=== PATIENT | female | born 1985 | race Caucasian/White ===

== ENCOUNTER → 2023-08-01 04:26 | Emergency (ER) | payer OTHER ==
[~2023-08-01 04:26] MED LIST: LIDOCAINE 1% 20 ML MDV ONE; LIDOCAINE 1% MPF 30 ML VIAL ONE
--- OUTSIDE RECORDS SUMMARY | 2023-08-01 06:26 | XMS REPORT | Continuity of Care Document ---
Author Name Unknown Address [address] [place] [address] 1 [address] [id number] [facility] Address [address] [facility] 1 [address] [place] [address] Care Team Providers Care Resume Specialist Name Role Phone Shawnee Ryan Attending Clinician Caio e Shawnee Ryan Admitting Clinician Unavailgabrielle e Payers Payer Name Policy Type Policy Number Effective Date Expirati on Date Source [employer] CHOICE POS II [id number] 2019 00:00:00 Allergies, Adverse Reactions, Alerts Allergy Name Allergy Type Status Severity Reaction(s) Onset Date Inactive Date Treating Clinician Comments Source No Known Allergie s DA Active U 09-04 00:00: 00 [facility] Procedures Procedure Date / Time Performed Performing Clinicia n Source [id number] 2023-07-25 00:00:00 DEBPR [facility] Encounters Start Date/Time End Date/Time Encounter Type Admission Type Attending Clinicians Care Facility Care Department Encounter ID Source 2023-03-20 13:50:12 Outpatient [facility] [id number] [facility] 2023-03-01 09:38:17 Outpatient [facility] [id number] [facility] 2023-01-30 10:02:05 Outpatient [facility] [id number] [facility] 2023-01-29 13:46:56 Outpatient [facility] [id number] [facility] 2023-07-25 04:57:00 2023-07-27 10:55:00 Inpatient EL Shawnee Ryan [facility] [id number] [facility] 2023-06-12 15:30:00 2023-06-12 16:16:24 Outpatient [facility] [id number] [facility] 2023-06-06 15:30:00 2023-06-06 15:30:00 Outpatient [facility] [id number] [facility] 2023-05-15 15:30:00 2023-05-15 16:30:19 Outpatient [facility] [id number] [facility] 2023-04-18 15:30:00 2023-04-18 16:30:16 Outpatient [facility] [id number] [facility] 2023-03-20 14:15:00 2023-03-20 15:07:43 Outpatient [facility] [id number] [facility] Results Test Description Test Time Test Comments Results Result Co mments Source HGB [id number] 06:45:00* Test Item Value Reference Range Interpretation Comme [facility] HEMOGLOBIN (test code = HGB) 6.4 g/dL 10.1-13.8 LL RESULTS CALLED Vanessa CALHOUN RNREAD BACK & CONFIRMED? YBY [id number] 07/26/23 0645Results verified by repeat analysis HEMATOCRIT (test code = HCT) 19.1 % 32.5-41.8 LL RESULTS CALLED Vanessa CALHOUN RNREAD BACK & CONFIRMED? YBY [id number] 07/26/23 0645 HGB [id number] 17:46:00* Test Item Value Reference Range Interpretation Comme nts HEMOGLOBIN (test code = HGB) 9.5 g/dL 10.1-13.8 L HEMATOCRIT (test code = HCT) 28.2 % 32.5-41.8 L [id number] 07:15:00* Test Item Value Reference Range Interpretation Comme nts GLUCOSE (test code = GLU) 73 mg/dL 65-110 N AB HIV 1 14:12:00* Test Item Value Reference Range Interpretation Comme nts AB HIV 1 2 (test code = HGY38JA) NONREACTIVE NONREACTIVE Done by Siemens Yik Yakaur 4th Gen HIV Ag/Ab Combo Screen AG HEPATITIS B [id number] 14:12:00* Test Item Value Reference Range Interpretation Comme nts AG HEPATITIS B SURFACE (test code = HBSAG) NONREACTIVE NONREACTIVE AB HEPATITIS C [id number] 14:12:00* Test Item Value Reference Range Interpretation Comme nts AB HEPATITIS C (test code = HCVAB) NONREACTIVE NONREACTIVE SIGNAL TO CUTOFF (test code = CUTOFF) 0.15 <0.80 N AB [id number] 14:12:00* Test Item Value Reference Range Interpretation Comme nts AB TREPONEMA (test code = TREPAB) NONREACTIVE NONREACTIVE COMPREHENSIVE METABOLIC [id number] 13:27:00* Test Item Value Reference Range Interpretation Comme nts SODIUM (test code = NA) 140 mEq/L 135-145 N POTASSIUM (test code = K) 4.1 mEq/L 3.5-5.0 N CHLORIDE (test code = CL) 105 mEq/L 100-115 N CARBON DIOXIDE (test code = CO2) 23 mEq/L 22-31 N ANION GAP (test code = GAP) 16.40 10-20 N GLUCOSE (test code = GLU) 87 mg/dL 65-110 N BLOOD UREA NITROGEN (test code = BUN) 16 mg/dL 7-18 N GLOMERULAR FILTRATION RATE (test code = GFR) 122 ml/min >60 N The Glomerular Filtration Rate is a calculated parameterbased on serum Creatinine, patient age and sex. GFR valuesless than 60 mL/min/1.73 square meters are indicative ofChronic Kidney Disease. Values less than 15 mL/min/1.73square meters indicate Kidney failure. The calculation forGFR is based on the CKD-EPI (2020) calculation. This formulais race indifferent and is the recommended formula for GFRby the National Kidney Foundation for Adults.The GFR will not calculate if the sex is unknown or if thepatient's age is <18 years. CREATININE (test code = CREAT) 0.5 mg/dL 0.5-1.0 N TOTAL PROTEIN (test code = PROT) 6.0 gm/dL 6.3-8.2 L ALBUMIN (test code = ALB) 2.4 gm/dL 3.4-4.8 L CALCIUM (test code = CA) 9.0 mg/dL 8.4-10.2 N BILIRUBIN TOTAL (test code = BILT) 0.3 mg/dL 0.2-1.0 N SGOT/AST (test code = AST) 15 units/L 15-37 N SGPT/ALT (test code = ALT) 17 units/L 12-78 N ALKALINE PHOSPHATASE TOTAL (test code = ALKP) 170 units/L 46-116 H CBC W/AUTO [id number] 12:03:00* Test Item Value Reference Range Interpretation Comme nts WHITE BLOOD CELL (test code = WBC) 8.3 K/mm3 6.5-12.3 N RED BLOOD CELL (test code = RBC) 3.94 M/mm3 3.51-4.69 N HEMOGLOBIN (test code = HGB) 11.9 g/dL 10.1-13.8 N HEMATOCRIT (test code = HCT) 35.6 % 32.5-41.8 N MEAN CELL VOLUME (test code = MCV) 90.4 fL 84.6-96.6 N MEAN CELL HGB (test code = MCH) 30.2 pg 27.3-33.9 N MEAN CELL HGB CONCETRATION ( test code = MCHC) 33.4 gm/dL 32.0-34.2 N RED CELL DISTRIBUTION WIDTH (test code = RDW) 12.4 % 12.2-16.3 N PLATELET COUNT (test code = PLT) 193 K/mm3 134-363 N MEAN PLATELET VOLUME (test c ode = MPV) 12.3 fL 9.2-12.7 N NEUTROPHIL % (test code = NT%) 67.6 % 57.9-77.3 N LYMPHOCYTE % (test code = LY%) 25.0 % 14.5-29.7 N MONOCYTE % (test code = MO%) 6.3 % 3.6-10.2 N EOSINOPHIL % (test code = EO%) 0.8 % 0.0-3.0 N BASOPHIL % (test code = BA%) 0.1 % 0.1-0.9 N NEUTROPHIL # (test code = NT#) 5.6 K/mm3 LYMPHOCYTE # (test code = LY#) 2.1 K/mm3 MONOCYTE # (test code = MO#) 0.5 K/mm3 EOSINOPHIL # (test code = EO#) 0.07 K/mm3 BASOPHIL # (test code = BA#) 0.0 K/mm3 RBC MORPHOLOGY REQUIRED (kat t code = RBCM) NORMAL NORMAL PLATELET MORPHOLOGY REQUIRED (test code = PLTMR) NORMAL NORMAL Notes Date/Time Note Provider Source 2023-07-27 07:58:00 [id number] 01T07:58:00 [facility] ([facility])OB Disch PostpartumREPORT#:[id number] REPORT STATUS: SignedREPORT INITIALIZATION DATE:07/27/23 TIME: 757 PATIENT: ANEL KRAFT UNIT #: [id number]#: [id number] ROOM/BED: 2024-ADOB: [birth year] AGE: 38 SEX: F ATTEND: Shawnee Ryan MDADM AUTHOR: Shawnee Ryan MDREPT SERVICE DT/TIME: 07/27/23757* ALL edits or amendments must be made on the electronic/computer document * Subjective SubjectiveAdmission EGA: Weeks: 39 Days: 5EGA at delivery (wks/days): 39 weeks (5 days)Status/day: post operative (day 2) Discharge Summary GeneralFree Text A P:38 yo [id number] presented for scheduled RCD @ 39w5d declining TOLAC. PNC c/bA1DM, AMA, and prior . Patient underwent uncomplicated . On POD#1, Hb returned consistent with acute blood loss anemia. She received transfusion 1 unit pRBC prior to infiltration of IV. Hb improved, and PO iron was started. She was discharged home on POD#2, with f/u in 1-2 week for incision check. Assessment: nml progress, acute blood loss anemiaHospital course: repeat admitDischarge diagnosis: full-term uncomp delivery, anemiaBaby A: status: live born Gender: male (Abdulkadir Segundo) 1 minute: 9 5 minutes: 0Plan: routine care, discharge today, s/p 1 unit pRBC Discharge InstructionsAdditional discharge routines: PCP Follow-UpDischarge meds:Stop taking the following medications:ASPIRIN (ASPIRIN) 81 MG TAB.CHEW 81 MILLIGRAM ORAL DAILY. Continue taking these medications:PNV WITH FE FUMARATE/FA () 1 EACH TAB 1 TABLET ORAL DAILY. Start taking the following new medications:IBUPROFEN (MOTRIN) 600 MG TAB 600 MILLIGRAM ORAL EVERY 6 HOURS. as needed for pain Qty = 30 Refills = 2 traMADol (ULTRAM) 50 MG TAB 50 MILLIGRAM ORAL EVERY 6 HOURS NEEDED. as needed for ACUTE PAIN Qty = 15 No Refills at 0800 RPT #:[id number] OF REPORT CLClinical [id number]:58:00F.[id number] able for patient [id number]:00:16 [facility] 2023-07-27 07:53:00 [id number] 01T07:53:00 [facility])OB Postpart Progr NoteREPORT#:[id number] REPORT STATUS: SignedREPORT INITIALIZATION DATE:07/27/23 TIME: 752 PATIENT: ANEL KRAFT UNIT #: [id number]#: [id number] ROOM/BED: 2024-ADOB: [birth year] AGE: 38 SEX: F ATTEND: Shawnee Ryan MDADM AUTHOR: Shawnee Ryan MDREPT SERVICE DT/TIME: 07/27/23 0753* ALL edits or amendments must be made on the electronic/computer document * Subjective SubjectiveAdmission EGA: Weeks: 39 Days: 5EGA at delivery (wks/days): 39 weeks (5 days)Status/Day: post operative (day 2)Comments:Doing well. Ambulating. Passing flatus. Denies anemia sx. Objective GeneralVS:Vital Signs: Date Time Temp Pulse Resp B/P B/P Pulse O2 O2 Flow FiO2 Mean Ox Delivery Rate 07/27 0108 98.4 92 18 121/76 90.9 07/26 1235 99.0 83 122/82 96 07/26 1235 99.0 83 122/82 96 07/26 1135 98.0 78 116/76 100 07/26 1135 98.0 78 116/76 100 07/26 1105 98.5 81 116/76 97 07/26 1105 98.5 81 116/76 97 07/26 1050 97.7 79 107/69 98 07/26 1050 97.7 98 107/69 98 07/26 1035 98.0 85 119/73 97 07/26 1035 98.0 85 119/73 97 07/26 1029 97.8 89 110/70 97 07/26 1029 97.8 89 110/70 97 07/26 0904 98.8 71 19 114/72 PATIENT WEIGHT: Weight (lb): 268Weight (oz): Weight (kg): 121.800 Physical ExamAbdomen: soft, no guardingIncision site: well approximated edges, dry, no drainageUterus: firm, involution appropriateFundus: firm, below the umbilicusLochia: normal ResultFindings/Data:Laboratory Tests: 07/26 1309 Hematology Hgb (10.1 - 13.8 g/dL) 7.3 L Hct (32.5 - 41.8 %) 21.0 L Diagnosis, Assessment Plan Diagnosis, Assessment PlanFree text A P:38 yo POD#2 s/p scheduled RCD @ 39w5d. PNC c/b A1DM, AMA, and prior . Patient doing well. Hb returned consistent with acute blood loss anemia, s/p transfusion 1 unit pRBC prior to infiltration of IV. Hb improved, and PO iron started. Will discharge home, with f/u in 1-2 week for incision check. discussed home iron supplementation.Assessment: nml progress, acute blood loss anemiaPlan: routine care, discharge today, s/p 1 unit pRBC at 075[facility] #:[id number] OF REPORT PRProgress [id number]:53:00F.[id number] able for patient [id number]:56:06 [facility] 2023-07-26 08:31:00 [id number] 30T08:31:00 [facility] ([facility])OB Postpart Progr NoteREPORT#:[id number] REPORT STATUS: SignedREPORT INITIALIZATION DATE:07/26/23 TIME: 0831 PATIENT: ANEL KRAFT UNIT #: [id number]#: [id number] ROOM/BED: 2024-ADOB: [birth year] AGE: 38 SEX: F ATTEND: Shawnee Ryan MDADM AUTHOR: Shawnee Ryan MDREPT SERVICE DT/TIME: 07/26/23 08* ALL edits or amendments must be made on the electronic/computer document * Subjective SubjectiveAdmission EGA: Weeks: 39 Days: 5EGA at delivery (wks/days): 39 weeks (5 days)Status/Day: post operative (day 1)Comments:Doing well. Ambulating and voiding. Denies anemia sx. Objective GeneralVS:Vital Signs: Date Time Temp Pulse Resp B/P B/P Pulse O2 O2 Flow FiO2 Mean Ox Delivery Rate 07/26 0343 97.7 77 18 95/63 07/26 0031 98.0 73 18 95/61 07/25 1938 97.4 78 18 97/67 07/25 1645 97.8 77 18 87/60 07/25 1000 92 20 95 07/25 0945 77.0 07/25 0945 71 13 108/59 98 07/25 0930 79.0 07/25 0930 73 31 108/58 100 07/25 0915 68.0 07/25 0915 71 20 99/54 100 07/25 0900 70.0 07/25 0900 76 20 96/47 100 07/25 0845 75.0 07/25 0845 78 18 101/55 97 PATIENT WEIGHT: Weight (lb): 268Weight (oz): Weight (kg): 121.800 Physical ExamAbdomen: soft, no guardingIncision site: well approximated edges, dry, no drainageUterus: firm, involution appropriateFundus: firm, below the umbilicusLochia: normal ResultFindings/Data:Laboratory Tests: 07/26 07/25 0550 1726 Hematology Hgb (10.1 - 13.8 g/dL) 6.4 *L 9.5 L Hct (32.5 - 41.8 %) 19.1 *L 28.2 L Diagnosis, Assessment Plan Diagnosis, Assessment PlanFree text A P:38 yo POD#1 s/p scheduled RCD @ 39w5d. PNC c/b A1DM, AMA, and prior . Patient doing well overnight. Hb returned consistent with acute blood loss anemia, currently asymptomatic with normal VS. Discussed transfusion 2 units pRBC due to significant anemia, patient amenable. Will transfuse and montior closely.Assessment: nml progress, acute blood loss anemiaPlan: routine care, circumcision today, transfusion 2 units prBC at 0834 RPT #:[id number] OF REPORT PRProgress [id number]:31:00F.[id number] able for patient [id number]:34:30 [facility] 2023-07-25 07:54:00 [id number] 29T07:54:00 [facility] ([facility])OB Delivery NoteREPORT#:[id number] REPORT STATUS: SignedREPORT INITIALIZATION DATE:07/25/23 TIME: 753 PATIENT: ANEL KRAFT UNIT #: [id number]#: [id number] [facility] A[facility]: 38 SEX: F ATTEND: Shawnee Ryan MDADM AUTHOR: Shwanee Ryan MDREPT SERVICE DT/TIME: 07/25/23 0754* ALL edits or amendments must be made on the electronic/computer document * OB Delivery Pre-deliveryNewborn evaluation at delivery: NRP certified personnelAdmission EGA: Weeks: 39 Days: 5EGA at delivery (wks/days): 39 weeks (5 days) Blood Loss/DetailsBlood loss at delivery: no more than expectedEBL at delivery (ml's): 600 Baby A InformationBaby A information Delivery date: 07/25/23 Delivery time: 720 status: live born Wt of baby (grams): 4090 Wt of baby (lbs/oz): 8/9 Gender: male (Panchal Sanya) 1 minute: 9 5 minutes: 0 Presentation: vertexABG details Baby A Cord blood gases: not collectedNuchal cord Baby A Nuchal cord: yes (loose and reduced) Operative Note-Full)(Start date: 07/25/23)(Pre-procedure diagnosis:prior declining TOLAC, AMA, A1DM)(Post-procedure diagnosis: same as pre-procedure dx)(Procedures performed:repeat low transverse section)(Technique/Procedure:The patient was taken to the operating room with IV in place. Ancef was given preoperatively. Spinal anesthesia was placed without difficulty. The patient was placed supine with left pelvic tilt. A Herrera catheter was placed into the bladder. She was prepped and draped in the usual sterile manner. A Pfannenstiel incision was carried out with the knife followed by the bovie down to the rectus fascia. The fascia was incised in the midline and extended with the bovie. The fascia was bluntly and sharply dissected from the rectus muscles, first superiorly then inferiorly. The rectus muscles were sharply inthe midline. The peritoneum was entered and extended superiorly and inferiorly. The bladder blade was inserted and the vesicouterine peritoneum lifted up, incised in the midline and the incision extended in a curvilinear fashion with Metzenbaum scissors. The bladder blade was replaced. The scalpel was used to make a 4 cm transverse incision in the lower uterine segment. The incision was extended transversely. Care was taken to avoid injury to the or uterine vessels. Clear amniotic fluid was encountered. The 's head was guided toward the hysterotomy incision and gentle fundal pressure was applied. The headwas delivered followed by the remainder of the . The mouth and nares were suctioned, the cord was doubly clamped and cut. The was handed off to [facility] certified personnel. Dilute oxytocin was infused.The placenta was removed manually, inspected and appeared intact. The uterus was exteriorized. The uterine cavity was palpated and small fragments of membranes were removed. The uterine incision was repaired with V-lock in a running locking fashion, and imbricating layer of #0 Monocryl. There were no signs of bleeding. The uterus, tubes and ovaries appeared normal.The uterus was replaced into the peritoneal cavity. The pericolic gutters were examined and small blood clots were removed. The hysterotomy incision, peritoneum, and rectus muscles were examined to be hemostatic. The rectus musclewas reapproximated with #2-0 vicryl interrupted sutures. The fascia was repairedwith # 0 PDS. The subcutaneous fat was irrigated and small bleeders were bovied. The subcutaneous tissue was reapproximated with # 3-0 plain gut suture. The skin was reapproximated with skin running subcuticular # 3-0 monocryl. Sponge and needle counts were correct on 2 counts. The patient was transferred to the recovery room in good condition. )(Primary Surgeon: Shawnee Ryan MD)(Sculpture Conservator(s): Crystal Mcgrath DO)(Anesthesia: epidural anesthetic)(Operative findings:1. Dense adhesions between subcutaneous tissue, fascia and muscle2. Filmy and dense adhesions between peritoneum and uterus3. Low transverse hysterotomy with 2 cm right inferior extension4. Normal appearing uterus, ovaries, and fallopian tubes)(Complications: none)( Estimated blood loss (ml): 600)(Specimens removed/altered: noneFluids:1800Urine output:150Disposition: return to floor, stableCounts: Sponge count: correct Instrument count: correct Needle count: correct Cottonoid count: correct Delivery DeliveryCesarean section indication: elective repeat Priority: scheduled : : declined Antibiotic prior to incision: 1 dose )(SCDs applied activated: Yes Uterine incision: low transverse Uterine scar: intact Consent: indication discussed, questions answered, pt consent to op delivery Mother's condition: mother stable Infant's condition: stable in room at 0802 RPT #:[id number] OF REPORT CLClinical [id number]:54:00F.[id number] able for patient [id number]:02:27 [facility] 2023-07-25 06:41:00 [id number] 29T06:41:00 [facility] ([facility])OB Admission / H PREPORT#:[id number] REPORT STATUS: SignedREPORT INITIALIZATION DATE:07/25/23 TIME: 640 PATIENT: ANEL KRAFT UNIT #: [id number]#: [id number] [facility] AGE: 38 SEX: F ATTEND: Shawnee Ryan MDADM AUTHOR: Shawnee Ryan MDREPT SERVICE DT/TIME: 07/25/23 0641* ALL edits or amendments must be made on the electronic/computer document * OB HistoryChief complaint: scheduled C-SectionHPI:38 yo @ 39w5d with PNC c/b A1DM, AMA, and prior who presents for scheduled repeat . Patient declines TOLAC. GDM has been diet controlled throughout . +FM. Denies ctx, VB, LOFPregnancy history: : 2 Term: 1 Living children: 1 Previous : low uterine trans incisCurrent : Admission EGA (weeks) 39 Admission EGA (days) 5Labs: Blood type: A Rh: positive Rubella: immune Hepatitis B: negative HIV: negative STD: negative Syphilis: currently negative GBS: negative Past HistoryAdditional Medical History:anxietyPast Surgical History:Reports: . Family HistoryDenies: Diabetes, Hypertension. Alcohol Use Denies EtOH useDrug Use Denies recreational drugsSmoking status for patients 13 years old or older: Never SmokerMedications:Home Medications:PNV WITH FE FUMARATE/FA () 1 TAB PO DAILY ASPIRIN 81 MG PO DAILY Allergies:Coded Allergies:No Known Allergies (09/04/17) Objective GeneralVS:Last Documented: Result Date Time B/P Mean 95.0 07/25 05 B/P 129/74 07/25 0522 Pulse 81 07/25 05 Vital Signs Date Temp Pulse Resp B/P B/P Mean Pulse Ox FiO2 07/25 81 129/74 95.0 PATIENT WEIGHT: Weight (lb): 268Weight (oz): Weight (kg): 121.504162 Physical ExamAbdomen: gravid, no abnormal tendernessUterine activity: Monitor: toco Frequency (description): noneMembranes: Membranes: IntactBaby A: Baby A FHR category: category 1 Diagnosis, Assessment Plan Diagnosis, Assessment PlanFree Text A P:38 yo @ 39w5d with PNC c/b A1DM, AMA, and prior who presents for scheduled repeat . Patient is aware of risks/benefits of TOLAC vs. RCD including uterine rupture, recovery, maternal and morbidity, surgical risks of adhesive disease and damage to intrabadominal organs, vessels,nerves, etc. Patient desires to proceed with RCD at this time. Assessment/Impression: previous C/S, for repeat, normal FHR patternPlan: admit to inpatient, scheduled K-awhqxinIzgquj-rlnjq C section: elective repeat at 0647 RPT #:[id number] OF REPORT HPHistory and physical [id number]:41:00F.[id number] AVAvailable for patient [id number]:47:14 [facility]WH
--- NOTE | 2023-08-01 09:39 | EDPHYS ---
Physician Documentation [facility] Name: Candace Chapa Age: 38 yrs Sex: Female : 1985 Arrival Date: 08/01/2023 Time: 03:16 Bed 14 Private MD: ED Physician Jose Baumann HPI: 08/01 03:51 This 38 yrs old Female presents to ER via Ambulatory with complaints of POST sp4 SURGICAL PROBLEM, Post Problem. 04:08 38-year-old female presents with wound dehiscence. Patient states 5 days ago sp4 she had a low transverse at [facility]. Patient developed 4 cm wound dehiscence this morning and presents here for evaluation. . 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 Flu vaccine is up to date. - Social history:: Smoking status: Patient denies any tobacco usage or history of. - Family history:: not pertinent. ROS: 04:08 Constitutional: Negative for fever, chills, and weight loss, Skin: Negative for injury, sp4 rash, and discoloration, positive for postoperative wound dehiscence 04:08 All other systems are negative, Exam: 04:08 Constitutional: This is a well developed, well nourished patient who is awake, alert, sp4 and in no acute distress. Head/Face: Normocephalic, atraumatic. Eyes: Pupils equal round and reactive to light, extra-ocular motions intact. Lids and lashes normal. Conjunctiva and sclera are not injected. Cornea within normal limits. Periorbital areas with no swelling, redness, or edema. ENT: Nares patent. No nasal discharge, no septal abnormalities noted. Tympanic membranes are normal and external auditory canals are clear. Oropharynx with no redness, swelling, or masses, exudates, or evidence of obstruction, uvula midline. Mucous membranes moist. Neck: Trachea midline, no thyromegaly or masses palpated, and no cervical lymphadenopathy. Supple, full range of motion without nuchal rigidity, or vertebral point tenderness. Chest/axilla: Normal chest wall appearance and motion. Nontender with no deformity. No lesions are appreciated. Cardiovascular: Regular rate and rhythm with a normal S1 and S2. No gallops, murmurs, or rubs. Normal PMI, no JVD. No pulse deficits. Respiratory: Lungs have equal breath sounds bilaterally, clear to auscultation and percussion. No rales, rhonchi or wheezes noted. No increased work of breathing, no retractions or nasal flaring. Abdomen/GI: Soft, non-tender, with normal bowel sounds. No distension or tympany. No guarding or rebound. No evidence of tenderness throughout. There is a low transverse incision with small area of wound dehiscence measuring about 4 cm. There is discoloration of abdominal pannus from recent consistent with abdominal skin hematoma. Back: No spinal tenderness. No costovertebral tenderness. Skin: Warm, dry with normal turgor. Normal color with no rashes, no lesions, and no evidence of cellulitis. MS/ Extremity: Pulses equal, no cyanosis. Neurovascular intact. Full, normal range of motion. Neuro: Awake and alert, GCS 15, oriented to person, place, time, and situation. Cranial nerves II-XII grossly intact. Motor strength 5/5 in all extremities. Sensory grossly intact. Psych: Awake, alert, with orientation to person, place and time. Behavior, mood, and affect are within normal limits Vital Signs: 03:26 BP 152 / 96; Pulse 85; Resp 18; Temp 98.6; Pulse Ox 100% ; Weight 117.93 kg; Height 5 vc1 ft. 2 in. ; Pain 0/10; 03:26 Body Mass Index 47.55 (117.93 kg, 157.48 cm) vc1 03:26 Pain Scale: Adult vc1 Mathews Coma Score: 04:23 Eye Response: spontaneous(4). Motor Response: obeys commands(6). Verbal Response: nw1 oriented(5). Total: 15. Laceration: 04:08 Wound Repair of 4cm ( 1.6in ) subcutaneous laceration to suprapubic area-a low sp4 transverse wound dehiscence area 4 cm long . Linear shaped.. Distal neuro/vascular/tendon intact. Anesthesia: Wound infiltrated with 20 mls of 1% lidocaine. Wound prep: Moderate cleansing by me, Chlorhexidine prep. Skin closed with 5 4-0 Silk using interrupted sutures and sterile technique. Dressed with 4x4's. Patient tolerated well. MDM: 04:08 Differential Diagnosis altered mental status, sepsis, flu. Data reviewed: vital signs, sp4 nurses notes. ED course: Area of wound dehiscence was pulled together with 5 silk sutures. Patient advised to see her CITY SECRETARY for follow-up in 2 to 3 days for wound check. . 04:12 Patient medically screened. sp4 08/01 03:52 Order name: Dressing - Wound; Complete Time: 04:07 sp4 08/01 03:52 Order name: Gloves, Sterile; Complete Time: 04:07 sp4 08/01 03:52 Order name: Setup Suture Tray; Complete Time: 04:07 sp4 Administered Medications: 04:07 Drug: Lidocaine Infiltration (1 %) 20 ml 20 ml Infiltration once; to bedside Volume: 20 nw1 ml; Route: Infiltration; Disposition Summary: 08/01/23 04:12 Discharge Ordered Notes: Location: Home sp4 Problem: new sp4 Symptoms: have improved sp4 Condition: Stable sp4 Diagnosis - Postoperative wound dehiscence, incision dehiscence sp4 Followup: sp4 - With: Private Physician - When: 2 - 3 days - Reason: Recheck today's complaints Discharge Instructions: - Discharge Summary Sheet sp4 - Wound Dehiscence, [id number] sp4 Forms: - Patient Portal Instructions sp4 Signatures: Zaira Hinojosa RN RN vc1 Jose Baumann MD MD sp4 Candace Lunsford RN RN nw1
--- NOTE | 2023-08-01 09:39 | ER ---
Nurse's Notes [facility] Name: Candace Chapa Age: 38 yrs Sex: Female : 1985 Arrival Date: 08/01/2023 Time: 03:16 Bed 14 Private MD: Diagnosis: Postoperative wound dehiscence, incision dehiscence Presentation: 08/01 03:26 Chief complaint: Patient states: I had a 5 days ago and it has opened up and vc1 there is drainage. Coronavirus screen: Vaccine status: Patient reports being unvaccinated. Client denies travel out of the [place] in the last 14 days. At this time, the client does not indicate any symptoms associated with coronavirus-19. Ebola Screen: Patient negative for fever greater than or equal to 101.5 degrees Fahrenheit, and additional compatible Ebola Virus Disease symptoms Patient denies exposure to infectious person. Patient denies travel to an Ebola-affected area in the 21 days before illness onset. No symptoms or risks identified at this time. Initial Sepsis Screen: Does the patient meet any 2 criteria? No. Patient's initial sepsis screen is negative. Does the patient have a suspected source of infection? No. Patient's initial sepsis screen is negative. Risk Assessment: Do you want to hurt yourself or someone else? Patient reports no desire to harm self or others. Onset of symptoms was August 01, 2023. 03:26 Method Of Arrival: Ambulatory vc1 03:26 Acuity: KAMRAN 4 vc1 Triage Assessment: 03:29 General: Appears in no apparent distress. comfortable, Behavior is calm, cooperative, vc1 appropriate for age. Pain: Denies pain. EENT: No deficits noted. No signs and/or symptoms were reported regarding the EENT system. Neuro: Level of Consciousness is awake, alert, obeys commands, Oriented to person, place, time, situation, Appropriate for age. Cardiovascular: No deficits noted. Respiratory: Airway is patent Respiratory effort is even, unlabored, Respiratory pattern is regular, symmetrical. GI: Reports abdominal incision open and drainage noted. : No deficits noted. No signs and/or symptoms were reported regarding the genitourinary system. Derm: Wound noted suprapubic area. Musculoskeletal: No deficits noted. No signs and/or symptoms reported regarding the musculoskeletal system. 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 Flu vaccine is up to date. - Social history:: Smoking status: Patient denies any tobacco usage or history of. - Family history:: not pertinent. Screenin:31 [facility] ED Fall Risk Assessment (Adult) History of falling in the last 3 months, vc1 including since admission No falls in past 3 months (0 pts) Confusion or Disorientation No (0 pts) Intoxicated or Sedated No (0 pts) Impaired Gait No (0 pts) Mobility Assist Device Used No (0 pt) Altered Elimination No (0 pt) Score/Fall Risk Level 0 - 2 = Low Risk Oriented to surroundings, Maintained a safe environment, Educated pt \T\ family on fall prevention, incl call for assistance when getting out of bed. Abuse screen: Denies threats or abuse. Nutritional screening: No deficits noted. Tuberculosis screening: No symptoms or risk factors identified. Assessment: 04:23 Reassessment: pt states that she is x5 days and that she noted an opening to nw1 her abdomen s/p section. MD nam used silk sutures x5 to close opening. Pt tolerated well. Vital Signs: 03:26 BP 152 / 96; Pulse 85; Resp 18; Temp 98.6; Pulse Ox 100% ; Weight 117.93 kg; Height 5 vc1 ft. 2 in. ; Pain 0/10; 03:26 Body Mass Index 47.55 (117.93 kg, 157.48 cm) vc1 03:26 Pain Scale: Adult vc1 Amarilis Coma Score: 04:23 Eye Response: spontaneous(4). Motor Response: obeys commands(6). Verbal Response: nw1 oriented(5). Total: 15. ED Course: 03:16 Patient arrived in ED. ag3 03:28 Triage completed. vc1 03:29 Arm band placed on left wrist. vc1 03:31 Patient has correct armband on for positive identification. Bed in low position. Pulse vc1 ox on. NIBP on. 03:51 Jose Nam MD is Attending Physician. sp4 04:23 Provided Education on: POC/ wound care. nw1 04:23 Assist provider with laceration repair. Patient did not have IV access during this nw1 emergency room visit. Dressings: 4X4s X 3; suprapubic area. 04:24 Pallavi Pichardo, RN is Primary Nurse. la4 Administered Medications: 04:07 Drug: Lidocaine Infiltration (1 %) 20 ml 20 ml Infiltration once; to bedside Volume: 20 nw1 ml; Route: Infiltration; Medication: 03:32 VIS not applicable for this client. vc1 Outcome: 04:12 Discharge ordered by . sp4 04:23 Discharged to home ambulatory, with family, nw1 04:23 Condition: stable 04:23 Discharge instructions given to patient, Instructed on discharge instructions, follow up and referral plans. Demonstrated understanding of instructions, follow-up care, 04:26 Patient left the ED. nw1 Signatures: Tona Tovar 3 Zaiar Hinojosa RN RN vc1 Jose Nam MD MD sp4 Pallavi Pichardo RN RN la4 Candace Lunsford RN RN nw1
== END | disposition home or self-care (01) ==
LOC: ER 04:26
PROC: 0HQ7XZZ Repair Abdomen Skin, External Approach (ICD-10-PCS; principal; 2023-08-01)
DX: O90.0 Disruption of cesarean delivery wound (principal); Z28.310 Unvaccinated for COVID-19
CPT/HCPCS: 99284; 12002; J2001 ×2